=== PATIENT | female | born 1955 ===

== ENCOUNTER 2018-10-12 09:05 | Outpatient (CLI) | payer SELFPAY | END 2019-02-08 07:32 | disposition home or self-care (01) | LOC: C.MAMMO 09:05 | DX: Z12.31 Encounter for screening mammogram for malignant neoplasm of breast (principal); E11.65 Type 2 diabetes mellitus with hyperglycemia ==

== ENCOUNTER 2018-11-27 10:16 | Outpatient (CLI) | payer SELFPAY | END 2018-11-27 10:17 | disposition home or self-care (01) | LOC: C.LAB 10:16 | DX: E11.65 Type 2 diabetes mellitus with hyperglycemia (principal); R80.9 Proteinuria, unspecified; I10 Essential (primary) hypertension ==